=== PATIENT | female | born 1955 | race Caucasian/White ===

== ENCOUNTER 2021-03-24 07:00 | Emergency (ER) | payer OTHER ==
[~2021-03-24] VITALS: Ht 182.9 cm; Wt 117.9 kg
--- OUTSIDE RECORDS SUMMARY | 2021-03-24 07:04 | XMS ---
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 Baldomero has no Care Guidelines for this patient. Juan VISIT COUNT (12 MO.) 1 DON Barajas TOTAL 1 NOTE: Visits indicate total known visits. ED/C VISIT TRACKING (12 MO.) 03/24/2021 07:01 DON Covarrubias OR TYPE: Emergency COMPLAINT: - LEFT EYE VISION PROBLEM INPATIENT VISIT TRACKING (12 MO.) No inpatient visits to display in this time frame [id number]
[2021-03-24] MEDS ORDERED: METHOCARBAMOL750 MG (07:16)
[2021-03-24] MEDS ORDERED: SUDOGEST120 MG PO (07:16)
--- NOTE | 2021-03-24 12:47 | EKG ---
[facility] [address] [facility] [place], [place] [address] Signed Normal sinus rhythm with sinus arrhythmia Normal ECG No previous ECGs available Confirmed by DORIAN BELL MD ([id number]) on 03/24/2021 12:47:45 PM Electronically Signed By: DORIAN BELL MD 03/24/21 1247 [facility] DATE OF : 57 PHYSICIAN: DORIAN BELL MD REPORT #: [id number] REPORT IS CONFIDENTIAL AND NOT TO BE RELEASED WITHOUT AUTHORIZATION
== END 2021-03-24 11:18 | disposition home or self-care (01) ==
LOC: ED 07:00
DX: H53.9 Unspecified visual disturbance (principal); Z87.891 Personal history of nicotine dependence; Z88.2 Allergy status to sulfonamides; Z88.1 Allergy status to other antibiotic agents; Z88.5 Allergy status to narcotic agent; Z79.899 Other long term (current) drug therapy
CPT/HCPCS: 80048; 83735; 84484; 85025; 85651; 93005; 93010; 96374; 96375; 99284-25; J0780; J1100; J1200; J1885; J3475

== ENCOUNTER 2021-11-22 07:00 | Day surgery (SDC) | payer MEDICARE, OTHER ==
[~2021-11-22] VITALS: Ht 182.9 cm; Wt 120.5 kg
[~2021-11-22 07:00] MED LIST: METHOCARBAMOL750 MG; SUDOGEST120 MG PO; TERBINAFINE HC250 MG PO; ZETIA10 MG PO
[2021-11-22] MEDS ORDERED: ACETAMINOPHEN325 M1 PO (07:42)
[2021-11-22] MEDS ORDERED: ZYRTEC10 MG PO (07:45)
--- NOTE | 2021-11-22 07:50 | NUR ---
PT TO X-RAY
--- NOTE | 2021-11-22 10:36 | NUR ---
1025: PT ARRIVES BACK TO DS RM 3 VIA WC WITH NOAH FROM IMAGING. PT ABLE TO TRANSFER SELF FROM WC TO STRETCHER, BLANKETS PLACED. IV FLUSHED WITH 10 MLS NS AND FLUIDS HOOKED UP. PT SISTER AT BEDSIDE, CALL LIGHT WITHIN REACH.
--- NOTE | 2021-11-22 11:22 | NUR ---
RUG CUTTER HELPER UPDATED AND PAIN MEDICATION GIVEN PER EMAR. PULSE OX IN PLACE AND SISTER AT BEDSIDE, EDUCATION GIVEN. 11/01 PAIN.
--- NOTE | 2021-11-22 12:32 | NUR ---
PT REPORTS 5/10 PAIN. MEDICATION GIVEN PER EMAR. PT UPDATED AND SISTER AT BEDSIDE. PT REPORTS PAIN IS GETTING BETTER. O2 SAT 100%
--- NOTE | 2021-11-22 16:01 | NUR ---
11/22/21 1601 Sheets,Fiordaliza 1554 PT ARRIVED TO PACU ON 6L VIA MASK WITH ORAL AIRWAY IN PLACE AND RN DOING DOING THRUST TO MAINTAIN AIRWAY. VSS. PT NONAROUSABLE.
[2021-11-22] MEDS ORDERED: OXYCODON-ACETA1 EAC2 PO (16:08)
[2021-11-22] MEDS ORDERED: ACETAMINOPHEN500 MG PO (16:08)
[2021-11-22] MEDS ORDERED: IBUPROFEN600 MG PO (16:08)
--- NOTE | 2021-11-22 16:58 | NUR ---
PT RESTING IN BED AND PT EATING PUDDING AND SIPPING SODA PER REQUEST. VSS.
--- NOTE | 2021-11-22 17:00 | NUR ---
SISTER AT BEDSIDE AND PLAN OF CARE DISCUSSED. PAIN MEDICATION GIVEN PER EMAR.
--- NOTE | 2021-11-22 17:45 | NUR ---
PT UP TO BATHROOM WITH SISTER. PT STERADY ON HER FEET. PT RATES PAIN 4/10 AND TOLERABLE.
--- NOTE | 2021-11-22 18:00 | NUR ---
DC INSTRUCTIONS GIVEN AND RX WITH PAPERWORK GIVEN. SISTER AND PT VERBALIZE UNDERSTANDING. VSS. PT DC VIA WC.
--- NOTE | 2021-11-24 11:23 | OR ---
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 PROCEDURE: Left needle localized excisional breast biopsy (partial mastectomy). ANESTHESIA: General endotracheal, Jayson Hancock CRNA. INDICATIONS: This 66-year-old white woman is a patient of Larissa Tyson PA-C, who was referred with a left upper outer quadrant intraductal papilloma and focal adjacent atypical ductal hyperplasia on imaging studies with subsequent biopsy on September 11, 2021. The intraductal papilloma was 3 mm in size and adjacent to a focal area of atypical ductal hyperplasia with fibrocystic change. She had no evidence of invasive carcinoma. She has no breast problems from the past and no family history of breast cancer. She is admitted to undergo excision of the area, which is nonpalpable, by needle localized technique, understanding the risks of bleeding, infection, cosmetic deformity, need for additional treatment should invasive malignancy be found, and other unforeseen complications. FINDINGS: Two wires emanated from the left breast, one superiorly and one laterally. The lateral one was the one associated with good localization. Excision of the breast tissue in conjunction with the well placed needle on specimen radiograph confirmed the neoplasm in question as well as the marker placed previously. DESCRIPTION OF PROCEDURE: The patient was received from the radiology suite and taken to the operating room, given general LMA type anesthetic and preoperative antibiotic Ancef. The left breast had 2 wires emanating from it, the superior one well marked as the inaccurate one and this was Electronically Signed By: JAYSON PASTRANA MD 11/24/21 1123 PATIENT NAME: CAT BRASHER OPERATIVE REPORT DATE OF : 57 REPORT #: [id number] PHYSICIAN: JAYSON PASTRANA MD PCP: ROGREIO SAAVEDRA PA-C REPORT IS CONFIDENTIAL AND NOT TO BE RELEASED WITHOUT AUTHORIZATION [facility] [address] [place], [place] [address] Signed removed. The lower wire exiting laterally was the appropriate one. It was trimmed to length. The breast was prepared with a spray of Betadine solution and draped sterilely. A curvilinear incision was made medial to the exit site of the wire. Dissection carried through the dermis using electrocautery. The wire was delivered into the wound. Using an Allis clamp, parenchyma was grasped and wide resection undertaken with electrocautery. The breast was surprisingly hypervascular overall and did require additional effort for hemostasis. The specimen was explanted, marked with short stitch superior and a long stitch laterally, and sent for specimen radiograph. Specimen radiograph, as interpreted by Dr. Turner, included the tumor marker as well as the neoplasm itself. Irrigation was undertaken of the wound and hemostasis assured with electrocautery. Parenchymal reapproximation was undertaken with interrupted 2-0 Vicryl, skin closed with running subcuticular 3-0 Vicryl. Steri-Strips were applied as well as Acticoat dressing. She tolerated the procedure well. Blood loss was less than 20 mL. Sponge, needle, and instrument counts were correct x3. MD SHAHEEN Medeiros/MODL /[id number] cc: BRISA Larkin PA-C Cynthia Sue Holmes, MD Copies: ROGERIO SAAVEDRA PA-C, CYNTHIA SUE MD ~ Electronically Signed By: JAYSON PASTRANA MD 11/24/21 1123 PATIENT NAME: CAT BRASHER OPERATIVE REPORT DATE OF : 57 REPORT #: [id number] PHYSICIAN: JAYSON PASTRANA MD PCP: ROGERIO SAAVEDRA PA-C REPORT IS CONFIDENTIAL AND NOT TO BE RELEASED WITHOUT AUTHORIZATION
--- NOTE | 2021-12-03 08:44 | PATH ---
[facility] [address] [place], [place] [address] Signed SPECIMEN(S): A LEFT BREAST BIOPSY WITH NEEDLE LOCALIZATION SPECIMEN SOURCE: A. LEFT BREAST BIOPSY WITH NEEDLE LOCALIZATION CLINICAL HISTORY: Intraductal papilloma L breast. 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 - Size (extent) of DCIS: Present in 3 of 26 blocks. - Architectural patterns: Micropapillary and cribriform. - Nuclear grade: Grade 1 (low). - Necrosis: Not identified. - Microcalcifications: Present in non-neoplastic tissue. - Margin status: All margins negative for DCIS. - Distance of DCIS to closest margin: ? 5 mm from all margins - Closest margin: Anterior, 5 mm. - Regional lymph nodes: Not applicable (no regional lymph nodes submitted or found). - Additional pathologic findings: Flat epithelial atypia (FEA), atypical ductal hyperplasia (ADH), lobular neoplasia (atypical lobular hyperplasia/lobular carcinoma in situ), biopsy site change, fibrocystic changes. - Pathologic stage classification (pTNM, AJCC 8th edition): pTis pN not assigned. - Breast biomarker studies: - Estrogen receptor (ER): Positive, greater than 95% of tumor cells with strong intensity - Progesterone receptor (PGR): Negative, less than 1% of tumor cells with staining. COMMENT: As part of [facility]' Quality Improvement Program, this case was reviewed by another member of our pathology staff. A diagnostic alert was initiated by Dr. Roman on 12/03/21. NAL:NRT:cml:C1NR PATIENT NAME: CAT BRASHER PATHOLOGY DATE OF : 57 REPORT #: [id number] PHYSICIAN: ISABEL PATHOLOGY PCP: ROGERIO SAAVEDRA PA-C REPORT IS CONFIDENTIAL AND NOT TO BE RELEASED WITHOUT AUTHORIZATION [facility] [address] [place], [place] [address] Signed MICROSCOPIC EXAMINATION: Histologic sections of all submitted blocks are examined by light microscopy. These findings, together with the gross examination, support the pathologic diagnosis. Immunohistochemical stains (with appropriately staining controls) were performed. E-cadherin (A2) highlights the lobular neoplasia with lack of membranous reactivity. ER and CK5/6 (A3, A6) highlight ADH and DCIS, with ER overexpression and loss of CK5/6 staining. Block: A4. The cold ischemia time is unknown. The fixative is 10% NBF. The length of fixation is 24 hours, meeting ASCO/CAP guidelines. Estrogen receptor clone SP1 and progesterone receptor clone 1E2 by [employer] [place], [place]. Detection: HRP Polymer Detection on the [employer] with appropriate controls. Nuclear immunoreactivity of 1% or greater is considered positive by ASCO/CAP 2020 guidelines. Internal control cells for ER are positive. Internal control cells for MI are positive. The technical component was performed by [facility], [address] [place] [address] (CLIA# [id number]). [facility], [address] [facility] [address] [address] (CLIA# [id number]). GROSS DESCRIPTION: The specimen, labeled "MW, left breast biopsy," is received in formalin and consists of an oriented portion of yellow-wood fatty tissue (48 g, 6.7 cm medial to lateral, 5.2 cm superior to inferior, 3.5 cm anterior to posterior) with a short stitch marking superior and a long stitch marking lateral. There is a localization wire entering and exiting the superior aspect of the specimen. The specimen is inked as follows: Blue = superior Green = inferior Black = posterior Yellow = anterior Red = medial [place] = lateral The specimen is serially sectioned from medial to lateral and a pink-wood PATIENT NAME: CAT BRASHER PATHOLOGY DATE OF : 57 REPORT #: [id number] PHYSICIAN: ISABEL WRIGHT PCP: ROGERIO SAAVEDRA PA-C REPORT IS CONFIDENTIAL AND NOT TO BE RELEASED WITHOUT AUTHORIZATION [address] [address] Signed fibrous area (1.5 x 1.5 x 1.2 cm) in slices 9-11, and a linda-shaped clip within the fibrous area in slice 10. The fibrous area is located in 0.2 cm from the anterior margin, 0.4 cm in the lateral margin, 1.2 cm from the inferior margin, 0.8 cm in the superior margin, 1.7 cm the posterior margin, and 4 cm from the lateral margin. The remaining cut surface shows yellow-wood fatty tissue with no lesions or masses grossly identified. The entire fibrous area is submitted. Gross photographs are taken and uploaded into [employer]. Valve Steamer sections are submitted as follows: (A1) slice one, medial margin, perpendicular sections (A2) slice nine, fibrous area (A3-A4) slice ten, fibrous area with location of clip (A5) posterior and superior margin closest to fibrous area (A6) slice eleven, fibrous area with anterior and lateral margin (A7) slice twelve, lateral margin, perpendicular sections Cold ischemic time cannot be calculated due to insufficient information The specimen is formalin for approximately 24 hours AC (under the direct supervision of a pathologist) The remainder of the slices 7-12 are submitted as follows at the request of Dr. Roman: (A8-A 13) slice seven (A 14-a 18) slice eight (A 19-a 20) slice nine (A 21-A22) slice 10 (A 23-A24) slice 11 (A 25-26) slice 12, perpendicularly sectioned AC (under the direct supervision of a pathologist) The Gross Description was prepared using a voice recognition system. The report was reviewed for accuracy; however, sound-alike word errors, addition and/or deletions may occur. If there is any question about this report, please contact Client Services. ADDITIONAL NOTES: Immunohistochemical and/or in situ hybridization studies were performed on this case with the appropriate positive controls that react as expected. This test was developed and its performance characteristics determined by [facility]. It has not been cleared or approved by the U.S. Food and Drug Administration. The FDA has determined that such clearance or approval is not PATIENT NAME: CAT BRASHER PATHOLOGY DATE OF : 57 REPORT #: [id number] PHYSICIAN: ISABEL PATHOLOGY PCP: SAAVEDRA,ROGERIO K PA-C REPORT IS CONFIDENTIAL AND NOT TO BE RELEASED WITHOUT AUTHORIZATION [facility] [address] [place], [place] [address] Signed necessary. This test is used for clinical purposes. It should not be regarded as investigational or for research. [facility] is certified under the Clinical Laboratory Improvement Amendments of 1988 (CLIA) as qualified to perform high complexity clinical laboratory testing. This assay has not been validated for specimens that have been decalcified. Immunohistochemical and/or in situ hybridization studies were performed on this case with the appropriate positive controls that react as expected. This test was developed and its performance characteristics determined by [facility]. It has not been cleared or approved by the U.S. Food and Drug Administration. The FDA has determined that such clearance or approval is not necessary. This test is used for clinical purposes. It should not be regarded as investigational or for research. [facility] is certified under the Clinical Laboratory Improvement Amendments of 1988 (CLIA) as qualified to perform high complexity clinical laboratory testing. This assay has not been validated for specimens that have been decalcified. The technical component was performed by [facility], [address] [place] [address] (Writing Manager: Ana Rosa Lerner MD; CLIA# [id number]). [facility], [address] [place] [address] (CLIA# [id number]). PERFORMING LABORATORY: The technical component was performed by [facility], [address] [place] [address] (Writing Manager: Ana Rosa Lerner MD; CLIA# [id number]). Professional interpretation was performed by [facility], [address] [address], [place], [place] [address] (CLIA# [id number]). Diagnostician: Allison Roman MD Pathologist Electronically Signed 12/03/2021 Copies: ~ PATIENT NAME: CAT BRASHER PATHOLOGY DATE OF : 57 REPORT #: [id number] PHYSICIAN: ISABEL PATHOLOGY PCP: ROGERIO SAAVEDRA PA-C REPORT IS CONFIDENTIAL AND NOT TO BE RELEASED WITHOUT AUTHORIZATION
== END 2021-11-22 18:00 | disposition home or self-care (01) ==
LOC: DS 07:00 → OPS 07:00 → MAM 08:00 → OPS 08:00 → EDSTATUS 08:00 → OPS 18:00
PROVIDERS: ATTEND Surgery
PROC: 0HBU0ZX Excision of Left Breast, Open Approach, Diagnostic (ICD-10-PCS; principal; 2021-11-22 09:00)
DX: D05.12 Intraductal carcinoma in situ of left breast (principal); D24.2 Benign neoplasm of left breast; N60.92 Unspecified benign mammary dysplasia of left breast; J45.909 Unspecified asthma, uncomplicated; Z17.0 Estrogen receptor positive status [ER+]; Z88.1 Allergy status to other antibiotic agents; Z88.2 Allergy status to sulfonamides; Z90.711 Acquired absence of uterus with remaining cervical stump; Z86.16 Personal history of COVID-19
CPT/HCPCS: 00404; 19281; 76098; 88307; 88341; 88342; 88360; J0131; J0690; J1100; J1644; J1885; J2250; J2405; J2704; J2765; J3010; J7121

== ENCOUNTER 2021-12-27 10:53 | Day surgery (SDC) | payer MEDICARE, OTHER ==
[~2021-12-27] VITALS: Ht 182.9 cm; Wt 119.5 kg
[~2021-12-27 10:53] MED LIST changes: +ACETAMINOPHEN325 M1 PO; +ACETAMINOPHEN500 MG PO; +IBUPROFEN600 MG PO; +OXYCODON-ACETA1 EAC2 PO; +ZYRTEC10 MG PO
[2021-12-27] MEDS ORDERED: ALLEGRA-D 24 H1 EACH PO (11:27)
--- NOTE | 2021-12-27 13:32 | NUR ---
12/27/21 1332 Sheets,Fiordaliza 1316 PT ARRVIED TO PACU ON 3L VIA MASK, VSS. PT ASLEEP AND NONAROUSABLE TO TACTILE STIMULI. SMALL AMOUNT OF SNORING NOTED. RESP EVEN AND UNLABORED. 1328 PT WOKE TO TACTILE STIMULI AND O2 REMOVED, PT REORIENTED TO PACU AND REPORTS WANTING A DRINK. PT EASILY FALLS RIGHT BACK TO SLEEP.
--- NOTE | 2021-12-28 17:44 | PATH ---
[facility] [address] [place], [place] [address] Signed SPECIMEN(S): A COLON POLYP AT 35 CM SPECIMEN(S): B COLON POLYP AT 15 CM SPECIMEN SOURCE: A. COLON POLYP AT 35 CM B. COLON POLYP AT 15 CM CLINICAL HISTORY: Family history of colon cancer. Postop diagnosis: Polyps and diverticulosis. FINAL PATHOLOGIC DIAGNOSIS: A. Colon, polyp at 35 cm, polypectomy: - Colonic mucosa with focal hyperplastic mucosal changes. - Negative for dysplasia or malignancy. B. Colon, polyps at 15 cm, polypectomy: - Fragments of hyperplastic polyp(s). - Negative for dysplasia or malignancy. NAL:[facility]:C2NR MICROSCOPIC EXAMINATION: Histologic sections of all submitted blocks are examined by light microscopy. These findings, together with the gross examination, support the pathologic diagnosis. GROSS DESCRIPTION: Two specimens are received in two containers labeled with "MW". A. The specimen, labeled "MW, 1," and designated on the requisition "colon polypectomy at 35 cm," is received in formalin and consists of two fragments of pink-wood tissue (0.3 cm in greatest dimension). The specimen is submitted entirely in cassette A1. B. The specimen, labeled "MW, 2," and designated on the requisition "colon polypectomy at 15 cm," is received in formalin and consists of seven fragments of pink-wood tissue (0.2 to 0.4 cm in greatest dimension). The specimen is submitted entirely in cassette B1. AC (under the direct supervision of a pathologist) The Gross Description was prepared using a voice recognition system. The report was reviewed for accuracy; however, sound-alike word errors, addition and/or deletions may occur. If there is any question about this report, please contact Client Services. PERFORMING LABORATORY: PATIENT NAME: CAT BRASHER PATHOLOGY DATE OF : 57 REPORT #: [id number] PHYSICIAN: ISABEL PATHOLOGY PCP: ROGERIO SAAVEDRA PA-C REPORT IS CONFIDENTIAL AND NOT TO BE RELEASED WITHOUT AUTHORIZATION [facility] [address] [place] [address] Signed The technical component was performed by [employer] [address] [address] (CLIA# [id number]). Professional interpretation was performed by [facility], [address] [address] (CLIA# [id number]). Diagnostician: Allison Roman MD Pathologist Electronically Signed 12/28/2021 Copies: ~ PATIENT NAME: CAT BRASHER PATHOLOGY DATE OF : 57 REPORT #: [id number] PHYSICIAN: ISABEL PATHOLOGY PCP: ROGERIO SAAVEDRA PA-C REPORT IS CONFIDENTIAL AND NOT TO BE RELEASED WITHOUT AUTHORIZATION
--- NOTE | 2021-12-28 21:14 | OR ---
[facility] [address] [place], [place] [address] Signed DATE OF OPERATION: 12/27/2021 SURGEON: Jayson Pastrana MD PREOPERATIVE DIAGNOSIS: Surveillance, history of polyps. POSTOPERATIVE DIAGNOSES: 1. Relatively flat polyp at 35 cm (excised). 2. Multiple small probable hyperplastic polyps at 15 cm, excised. PROCEDURE: Total colonoscopy to cecum with cold morcellation polypectomies. ANESTHESIA: Intravenous sedation propofol (initially fentanyl and Versed). INDICATION: This 66-year-old white woman is a patient of CONY Eaton and known to me having undergone recent breast cancer treatment. She has had a prior colonoscopy in [place] and said to have had colonoscopy in [place], [place] which was unsuccessful. She is known to have diverticulosis. She is admitted at this time to undergo colon surveillance. She understands the risk of bleeding, infection, and perforation. FINDINGS: The prep was quite excellent. Complete colonoscopy was undertaken to the cecum. Notably, she had extensive diverticulosis in her relatively redundant colon. Typical intravenous sedation with fentanyl and Versed was unsuccessful largely and therefore sedation with propofol infusional technique by the ditch rider was required to allow for complete colonoscopy. There were numerous diverticula of the sigmoid and left colon with some distortion associated with that. The more proximal colon showed no sign of diverticula particularly. Complete colonoscopy was undertaken including intubation of the ileum without question. There was a small flat polyp at 35 cm which was excised with cold morcellation technique and several probably hyperplastic polyps of the rectosigmoid at 15 cm, which were excised as well. DESCRIPTION OF PROCEDURE: The patient was brought to the endoscopy suite and placed in the lateral decubitus Electronically Signed By: JAYSON PASTRANA MD 12/28/21 2114 PATIENT NAME: CAT BRASHER OPERATIVE REPORT DATE OF : 57 REPORT #: [id number] PHYSICIAN: JAYSON PASTRANA MD PCP: KIRA GRACE PA-C REPORT IS CONFIDENTIAL AND NOT TO BE RELEASED WITHOUT AUTHORIZATION [facility] [address] [place], [place] [address] Signed position, given intravenous sedation to the point of slurred speech and nystagmus. Digital rectal examination was normal. The Olympus video colonoscope was passed in the rectum and manipulated into the sigmoid. She had numerous diverticula and some dense tissue of the sigmoid for which passage was somewhat challenging. Various maneuvers were undertaken in the usual way as well as additional sedation. At that point, where she had 200 mcg of fentanyl and 6 mg of Versed was deemed appropriate to convert to a propofol infusional technique and Nicolas Piedra CRNA was summoned and graciously allowed for additional sedation with propofol. This did allow for passage of the scope fully to the cecum. Notably passage beyond the sigmoid and left colon was challenging in part related to diverticulosis, but in part related to poor patient tolerance of the procedure, but certainly not related to bowel prep as it was quite good. Once the cecum was fully intubated, the scope was carefully withdrawn and examination throughout undertaken. About 35 cm from the anal verge, there was a small flat polyp, possibly adenomatous. This was excised with cold morcellation technique completely. Further withdrawal multiple diverticula of the sigmoid. At the rectosigmoid, multiple small hyperplastic appearing polyps were noted. These were excised with cold morcellation technique. There are at least 4 to 6 of them excised in total. Retroflexed view of the rectum was normal. Scope was straightened, withdrawn and removed. The patient was taken to the recovery room in good condition. CONCLUDING DIAGNOSES: 1. Multiple polyps at 15 cm (excised, probably hyperplastic). 2. Small flat polyp at 35 cm, excised, possibly adenomatous). PLAN: Recommend repeat colonoscopy in 10 years if all the polyps are hyperplastic and in 5 if adenomas are noted. It is noted that propofol infusional sedation in the future would be most appropriate given her level of tolerance for colonoscopy. MD SHAHEEN Medeiros/LEROY /[id number] cc: Kira Grace PA-C Electronically Signed By: JAYSON PASTRANA MD 12/28/21 2114 PATIENT NAME: [facility] OPERATIVE REPORT DATE OF : 57 REPORT #: [id number] PHYSICIAN: JAYSON PASTRANA MD PCP: KIRA GRACE PA-C REPORT IS CONFIDENTIAL AND NOT TO BE RELEASED WITHOUT AUTHORIZATION [facility] [address] [place] [address] [place], [place] [address] Signed Copies: KIRA GRACE PA-C ~ Electronically Signed By: JAYSON PASTRANA MD 12/28/21 2114 PATIENT NAME: CAT BRASHER OPERATIVE REPORT DATE OF : 57 REPORT #: [id number] PHYSICIAN: JAYSON PASTRANA MD PCP: KIRA GRACE PA-C REPORT IS CONFIDENTIAL AND NOT TO BE RELEASED WITHOUT AUTHORIZATION
== END 2021-12-27 14:13 | disposition home or self-care (01) ==
LOC: OPS 10:53 → DS 10:58 → OPS 14:13
PROVIDERS: ATTEND Surgery
PROC: 0DBN8ZX Excision of Sigmoid Colon, Via Natural or Artificial Opening Endoscopic, Diagnostic (ICD-10-PCS; principal; 2021-12-27 12:00)
DX: Z12.11 Encounter for screening for malignant neoplasm of colon (principal); K63.5 Polyp of colon; D05.12 Intraductal carcinoma in situ of left breast; Z80.0 Family history of malignant neoplasm of digestive organs; J45.909 Unspecified asthma, uncomplicated; Z88.1 Allergy status to other antibiotic agents; Z88.2 Allergy status to sulfonamides; K57.30 Diverticulosis of large intestine without perforation or abscess without bleeding
CPT/HCPCS: 00811; J2250; J2704; J3010; J7121

== ENCOUNTER 2023-04-30 10:12 | Emergency (ER) | payer MEDICARE, OTHER ==
[~2023-04-30] VITALS: Ht 182.9 cm; Wt 105.6 kg
--- OUTSIDE RECORDS SUMMARY | ~2023-04-30 | XMS | Continuity of Care Document ---
Demographics + + + | Address | [address] | | | [place] [address] | + + + | Preferred Language | Unknown | + + + | Marital Status | | + + + | Scientologist Affiliation | Unknown | + + + | Race | White | + + + | Ethnic Group | Not or | + + + Author + + + | Author | [facility] | + + + | Organization | [facility] | + + + | Address | [address] | | | [place] [address] | + + + | Phone | | + + + Care Team Providers + + + + | Care University Controller Name | Role | Phone | + + + + Unavailable | Unavailable | + + + + Unavailable | Unavailable | + + + + Unavailable | Unavailable | + + + + Unavailable | Unavailable | + + + + Allergies and Intolerances + + + + + + | date | description | facility | reaction | severity | + + + + + + | (no date) | MOXIFLOXACIN | [facility] | (no reaction) | (no severity) | [facility] | | | | | [place] | | | | | | [facility] | | | | | | | | | + + + + + + | (no date) | Mild | [facility] | (no reaction) | (no severity) | | | | [facility] | | | + + + + + + | (no date) | Itching | [facility] | (no reaction) | (no severity) | | | [facility] | | | | | [place] | | | | | | [facility] | | | | | | | | | + + + + + + | (no date) | meperidine | [facility] | (no reaction) | (no severity) | | | | [facility] | | | + + + + + + | (no date) | LEVOFLOXACIN | [facility] | (no reaction) | (no severity) | | | [facility] | | | | | | [place] | | | | | | [facility] | | | | | | | | | + + + + + + | (no date) | Hallucination | [facility] | (no reaction) | (no severity) | | | [facility] | | | | | [place] | | | | | | [facility] | | | | | | | | | + + + + + + | (no date) | Hallucinations | [facility] | (no reaction) | (no severity) | | | | [facility] | | | + + + + + + | (no date) | MORPHINE | [facility] | (no reaction) | (no severity) | | | SULFATE | [facility] | | [place] | | | | | | [facility] | | | | | | | | | + + + + + + | (no date) | morphine | [facility] | (no reaction) | (no severity) | | | | [facility] | | | + + + + + + | (no date) | Other (See | [facility] | (no reaction) | (no severity) | | | Comments) | [facility] | [facility] | | [place] | | | | | | [facility] | | | | | | | | | + + + + + + | (no date) | MORPHINE | [facility] | (no reaction) | (no severity) | | | SULFATE | [facility] | [place] | | | | | | [facility] | | | | | | | | | + + + + + + | (no date) | LEVOFLOXACIN | [facility] | (no reaction) | (no severity) | | | [facility] | | | | | | [place] | | | | | | [facility] | | | | | | | | | + + + + + + | (no date) | levofloxacin | [facility] | (no reaction) | (no severity) | | | | [facility] | | | + + + + + + | (no date) | MONTELUKAST | [facility] | (no reaction) | (no severity) | | | [facility] | | | | | | [place] | | | | | | [facility] | | | | | | | | | + + + + + + | (no date) | MOXIFLOXACIN | [facility] | (no reaction) | (no severity) | | | [facility] | | | | | | [place] | | | | | | [facility] | | | | | | | | | + + + + + + | (no date) | Sulfa | [facility] | (no reaction) | (no severity) | | | (Sulfonamide | | | | | | Antibiotics) | | | | + + + + + + | (no date) | morphine | [facility] | (no reaction) | (no severity) | + + + + + + | (no date) | meperidine | [facility] | (no reaction) | (no severity) | + + + + + + | (no date) | levofloxacin | [facility] | (no reaction) | (no severity) | + + + + + + | (no date) | MONTELUKAST | [facility] | (no reaction) | (no severity) | | | [facility] | | | | | [place] | | | | | | [facility] | | | | | | | | | + + + + + + | (no date) | SULFA | [facility] | (no reaction) | (no severity) | | | ANTIBIOTICS | [facility] | | | | | [place] | | | | | | [facility] | | | | | | | | | + + + + + + Encounters No information. Functional Status No information. Immunizations No information. Medications + + + + | date | description | facility | + + + + | 2020-08-28 00:00 | cetirizine hcl 10 mg oral | [facility] | | | tablet | [facility] | | | | | + + + + | 2020-09-01 00:00 | cetirizine hcl 10 mg oral | [facility] | | | tablet | [place] [facility] | | | | | + + + + | 2020-09-26 00:00 | cetirizine hcl 10 mg oral | [facility] | | | tablet | [facility] | | | | | + + + + | 2020-10-24 00:00 | cetirizine hcl 10 mg oral | [facility] | | | tablet | [facility] | | | | | + + + + | 2020-05-08 00:00 | pseudoephedrine hcl 120 mg | [facility] | | | 12 hr extended release | [facility] | | | oral tablet | | + + + + | 2020-08-28 00:00 | pseudoephedrine hcl 120 mg | [facility] | | | 12 hr extended release | [facility] | | | oral tablet | | + + + + | 2021-11-22 00:00 | OXYCODONE | [facility] | | | HCL/ACETAMINOPHEN | | + + + + | 2019-09-16 00:00 | fluticasone propionate 50 | [facility] | | | mcg/actuat metered dose | [facility] | | | nasal spray | | + + + + | 2020-03-01 00:00 | clonazepam 0.5 mg oral | [facility] | | | tablet | [facility] | | | | | + + + + | 2021-11-22 00:00 | IBUPROFEN | [facility] | + + + + | 2022-03-02 00:00 | METHOCARBAMOL | [facility] | + + + + | 2020-07-06 00:00 | methocarbamol 750 mg oral | [facility] | | | tablet | [facility] | | | | | + + + + | 2020-09-01 00:00 | methocarbamol 750 mg oral | [facility] | | | tablet | [facility] | | | | | + + + + | 2020-07-21 00:00 | lamotrigine 200 mg oral | [facility] | | | tablet | [facility] | | | | | + + + + | 2021-11-22 00:00 | ACETAMINOPHEN | [facility] | + + + + | 2020-08-28 00:00 | acquired hemolytic anemias | [facility] | | | | [facility] | | | | | + + + + | 2020-09-01 00:00 | acquired hemolytic anemias | [facility] | | | | [facility] | | | | | + + + + | 2020-09-26 00:00 | acquired hemolytic anemias | [facility] | | | | [facility] | | | | | + + + + | 2020-10-24 00:00 | acquired hemolytic anemias | [facility] | | | | [facility] | | | | | + + + + | 2020-08-28 00:00 | acquired hemolytic anemias | [facility] | | | | [facility] | | | | | + + + + | 2020-09-01 00:00 | acquired hemolytic anemias | [facility] | | | | [facility] | | | | | + + + + | 2020-09-26 00:00 | acquired hemolytic anemias | [facility] | | | | [facility] | | | | | + + + + | 2020-10-24 00:00 | acquired hemolytic anemias | [facility] | | | | [facility] | | | | | + + + + | 2022-03-02 00:00 | ACETAMINOPHEN | [facility] | + + + + | 2020-08-28 00:00 | acetaminophen 325 mg oral | [facility] | | | tablet | [facility] | | | | | + + + + | 2020-09-01 00:00 | acetaminophen 325 mg oral | [facility] | | | tablet | [facility] | | | | | + + + + | 2020-09-26 00:00 | acetaminophen 325 mg oral | [facility] | | | tablet | [facility] | | | | | + + + + | 2020-10-24 00:00 | acetaminophen 325 mg oral | [facility] | | | tablet | [facility] | | | | | + + + + | 2022-03-02 00:00 | EZETIMIBE | [facility] | + + + + | 2019-06-17 00:00 | fluticasone propionate 110 | [facility] | | | mcg/inhal metered dose | [facility] | | | inhaler, 120 actuations | | + + + + | 2019-06-17 00:00 | flovent hfa 110 mcg/actuat | [facility] | | | metered dose inhaler, 120 | [facility] | | | actuat | | + + + + | 2019-09-16 00:00 | 24 hr bupropion | [facility] | | | hydrochloride 300 mg | [facility] | | | extended release oral | | | | tablet | | + + + + | 2020-10-24 00:00 | 24 hr bupropion | [facility] | | | hydrochloride 300 mg | [facility] | | | extended release oral | | | | tablet | | + + + + | 2022-03-02 00:00 | | [facility] | | | FEXOFENADINE/PSEUDOEPHEDRIN | | | | E | | + + + + | 2020-08-28 00:00 | fexofenadine hcl 180 mg 24 | [facility] | | | hr oral tablet | [facility] | | | | | + + + + | 2020-09-01 00:00 | fexofenadine hcl 180 mg 24 | [facility] | | | hr oral tablet | [facility] | | | | | + + + + | 2020-09-26 00:00 | fexofenadine hcl 180 mg 24 | [facility] | | | hr oral tablet | [facility] | | | | | + + + + | 2020-10-24 00:00 | fexofenadine hcl 180 mg 24 | [facility] | | | hr oral tablet | [facility] | | | | | + + + + Problems + + + + | date | description | facility | + + + + | 2009-03-30 00:00 | adaptive colitis | [facility] | | | | [facility] | | | | | + + + + | 2009-03-30 00:00 | sleeplessness | [facility] | | | | [facility] | | | | | + + + + | 2009-03-30 00:00 | anxiety depression | [facility] | | | | [facility] | | | | | + + + + | 2009-03-30 00:00 | hld - hyperlipidemia | [facility] | | | | [facility] | | | | | + + + + | 2009-03-30 00:00 | Hyperlipidemia | [facility] | | | | [facility] | | | | | + + + + | 2009-03-30 00:00 | 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 | [facility] | | | | | + + + + | 2009-03-30 00:00 | Insomnia | [facility] | | | | [facility] | | | | | + + + + | 2009-03-30 00:00 | IBS (irritable bowel | [facility] | | | syndrome) | [facility] | | | | | + + + + | 2009-08-04 00:00 | incontinence (finding) | [facility] | | | | [facility] | | | | | + + + + | 2009-08-04 00:00 | Mixed incontinence urge | [facility] | | | and stress | [facility] | | | | | + + + + | 2010-05-30 00:00 | lazs palsy | [facility] | | | | [facility] | | | | | + + + + | 2010-05-30 00:00 | [place] palsy | [facility] | | | | [facility] | | | | | + + + + | 2010-07-25 00:00 | tobacco user (finding) | [facility] | | | | [facility] | | | | | + + + + | 2010-07-25 00:00 | Tobacco abuse | [facility] | | | | [facility] | | | | | + + + + | 2011-09-12 00:00 | vertigo (spinning | [facility] | | | sensation) | [facility] | | | | | + + + + | 2011-09-12 00:00 | Vertigo | [facility] | | | | [facility] | | | | | + + + + | 2015-05-05 00:00 | gastro-esophageal reflux | [facility] | | | disease | [facility] | | | | | + + + + | 2015-05-05 00:00 | GERD (gastroesophageal | [facility] | | | reflux disease) | [facility] | | | | | + + + + | 2016-03-01 00:00 | triggering of digit | [facility] | | | (disorder) | [facility] | | | | | + + + + | 2016-03-01 00:00 | Trigger ring finger of | [facility] | | | right hand | [facility] | | | | | + + + + | 2016-06-21 00:00 | chronic infection of sinus | [facility] | | | | [facility] | | | | | + + + + | 2016-06-21 00:00 | Chronic infection of sinus | [facility] | | | | [facility] | | | | | + + + + | 2018-02-03 00:00 | chronic low back pain | [facility] | | | (finding) | [facility] | | | | | + + + + | 2018-02-03 00:00 | Chronic bilateral low back | [facility] | | | pain without sciatica | [facility] | | | | | + + + + | 2018-02-18 00:00 | body mass index 30+ - | [facility] | | | obesity (finding) | [facility] | | | | | + + + + | 2018-02-18 00:00 | Obesity (BMI 35.0-39.9 | [facility] | | | without comorbidity) | [facility] | | | | | + + + + | 2018-04-24 00:00 | polyp (disorder) | [facility] | | | | [facility] | | | | | + + + + | 2018-04-24 00:00 | Adenomatous polyps | [facility] | | | | [facility] | | | | | + + + + | 2018-04-29 00:00 | history of adenomatous | [facility] | | | polyp of colon (situation) | [facility] | | | | | + + + + | 2018-04-29 00:00 | Hx of adenomatous colonic | [facility] | | | polyps | [facility] | | | | | + + + + | 2022-08-27 07:45 | AFTERCARE FOLLOWING JOINT | [facility] | | | REPLACEMENT SURGERY | | + + + + | 2022-08-27 07:45 | FINGER-JOINT REPLACEMENT | [facility] | | | OF LEFT HAND | | + + + + | 2023-03-18 13:29 | PRIMARY OSTEOARTHRITIS, | [facility] | | | LEFT ANKLE AND FOOT | | + + + + | 2023-03-18 13:29 | PAIN IN LEFT HIP | [facility] | + + + + | 2023-03-18 13:29 | PAIN IN LEFT KNEE | [facility] | + + + + | 2023-03-18 13:29 | PAIN IN LEFT ANKLE AND | [facility] | | | JOINTS OF LEFT FO | | + + + + | 2023-03-18 13:29 | OTHER SPECIFIED DISORDERS | [facility] | | | OF BONE, OTHER SITE | | + + + + | 2023-03-18 13:29 | UNSPECIFIED INJURY OF LEFT | [facility] | | | HIP, INITIAL | | + + + + | 2023-04-22 14:00 | ABNORMAL FINDINGS ON DX | [facility] | | | IMAGING OF OTH B | | + + + + | 2023-04-22 14:01 | BENIGN NEOPLASM OF LONG | [facility] | | | BONES OF LEFT LOWER LIMB | | + + + + | 2023-04-22 14:01 | ABNORMAL FINDINGS ON | [facility] | | | DIAGNOSTIC IMAGING OF PRT | | | | MS | | + + + + | 2023-04-22 14:01 | ABNORMAL FINDINGS ON DX | [facility] | | | IMAGING OF OTH B | | + + + + | 2023-04-22 14:01 | ABNORMAL FINDINGS ON DX | [facility] | | | IMAGING OF OTH BODY | | | | STRUCTURES | | + + + + | 2023-04-22 14:01 | UNSP FRACTURE OF UPPER END | [facility] | | | OF LEFT TIBIA, INIT FOR | | + + + + | 2023-04-22 14:01 | OTH TEAR OF LAT MENSC, | [facility] | | | CURRENT INJURY, LEFT KNEE, | | + + + + Procedures + + + + | date | description | facility | + + + + | 2021-12-27 00:00 | EXCISION OF SIGMOID COLON, | [facility] | | | ENDO, DIAGN | | + + + + | 2021-11-22 00:00 | EXCISION OF LEFT BREAST, | [facility] | | | OPEN APPROACH, DIAGNOSTIC | | + + + + | 2021-11-22 00:00 | EXCISION BREAST LESION | [facility] | + + + + | 2021-12-27 00:00 | COLONOSCOPY AND BIOPSY | [facility] | + + + + Results/Labs +--------+--------+ +---------+--------+---------+ | test | date | facility | value | unit | notes | +--------+--------+ +---------+--------+---------+ + + | Result panel 1 | + + + + + +-------+ + + | | 2021-11-19 | [facility] | 8.8 | (missing) | (missing) | | (unavailable | 15:04 | [facility] | | | | + + + +-------+ + + + + | Result panel 2 | + + + + + +--------+ + + | | 2021-11-19 | [facility] | 71.7 | (missing) | (missing) | | (unavailable | 15:04 | [facility] | | | | + + + +--------+ + + + + | Result panel 3 | + + + + + +--------+ + + | | 2021-11-19 | [facility] | 19.4 | (missing) | (missing) | | (unavailable | 15:04 | [facility] | | | | + + + +--------+ + + + + | Result panel 4 | + + + + + +-------+ + + | | 2021-11-19 | [facility] | 7.1 | (missing) | (missing) | | (unavailable | 15:04 | [facility] | | | | + + + +-------+ + + + + | Result panel 5 | + + + + + +-------+ + + | | 2021-11-19 | [facility] | 1.0 | (missing) | (missing) | | (unavailable | 15:04 | [facility] | | | | + + + +-------+ + + + + | Result panel 6 | + + + + + +-------+ + + | | 2021-11-19 | [facility] | 0.8 | (missing) | (missing) | | (unavailable | 15:04 | [facility] | | | | + + + +-------+ + + + + | Result panel 7 | + + + + + +-------+---------+ + | | 2021-11-19 | [facility] | 108 | mg/dL | (missing) | | (unavailable | 15:04 | [facility] | | | | + + + +-------+---------+ + + + | Result panel 8 | + + + + + +------+---------+ + | | 2021-11-19 | [facility] | 15 | mg/dL | (missing) | | (unavailable | 15:04 | [facility] | | | | + + + +------+---------+ + + + | Result panel 9 | + + + + + +--------+---------+ + | | 2021-11-19 | [facility] | 1.03 | mg/dL | (missing) | | (unavailable | 15:04 | [facility] | | | | + + + +--------+---------+ + + + | Result panel 10 | + + + + + +---------+ + + | | 2021-11-19 | [facility] | 53.78 | (missing) | (missing) | | (unavailable | 15:04 | [facility] | | | | + + + +---------+ + + + + | Result panel 11 | + + + + + +---------+ + + | | 2021-11-19 | [facility] | 14.56 | (missing) | (missing) | | (unavailable | 15:04 | [facility] | | | | + + + +---------+ + + + + | Result panel 12 | + + + + + +--------+ + + | | 2021-11-19 | [facility] | 4.51 | (missing) | (missing) | | (unavailable | 15:04 | [facility] | | | | + + + +--------+ + + + + | Result panel 13 | + + + + + +-------+ + + | | 2021-11-19 | [facility] | 137 | (missing) | (missing) | | (unavailable | 15:04 | [facility] | | | | + + + +-------+ + + + + | Result panel 14 | + + + + + +-------+ + + | | 2021-11-19 | [facility] | 4.1 | (missing) | (missing) | | (unavailable | 15:04 | [facility] | | | | + + + +-------+ + + + + | Result panel 15 | + + + + + +-------+ + + | | 2021-11-19 | [facility] | 100 | (missing) | (missing) | | (unavailable | 15:04 | [facility] | | | | + + + +-------+ + + + + | Result panel 16 | + + + + + +------+ + + | | 2021-11-19 | [facility] | 26 | (missing) | (missing) | | (unavailable | 15:04 | [facility] | | | | + + + +------+ + + + + | Result panel 17 | + + + + + +--------+ + + | | 2021-11-19 | [facility] | 15.1 | (missing) | (missing) | | (unavailable | 15:04 | [facility] | | | | + + + +--------+ + + + + | Result panel 18 | + + + + + +-------+---------+ + | | 2021-11-19 | [facility] | 9.5 | mg/dL | (missing) | | (unavailable | 15:04 | [facility] | | | | + + + +-------+---------+ + + + | Result panel 19 | + + + + + +-------+ + + | | 2021-11-19 | [facility] | 7.7 | (missing) | (missing) | | (unavailable | 15:04 | [facility] | | | | + + + +-------+ + + + + | Result panel 20 | + + + + + +-------+ + + | | 2021-11-19 | [facility] | 2.8 | (missing) | (missing) | | (unavailable | 15:04 | [facility] | | | | + + + +-------+ + + + + | Result panel 21 | + + + + + +-------+ + + | | 2021-11-19 | [facility] | 4.9 | (missing) | (missing) | | (unavailable | 15:04 | [facility] | | | | + + + +-------+ + + + + | Result panel 22 | + + + + + +--------+ + + | | 2021-11-19 | [facility] | 0.57 | (missing) | (missing) | | (unavailable | 15:04 | [facility] | | | | + + + +--------+ + + + + | Result panel 23 | + + + + + +--------+ + + | | 2021-11-19 | [facility] | 14.2 | (missing) | (missing) | | (unavailable | 15:04 | [facility] | | | | + + + +--------+ + + + + | Result panel 24 | + + + + + +-------+ + + | | 2021-11-19 | [facility] | 0.4 | (missing) | (missing) | | (unavailable | 15:04 | [facility] | | | | + + + +-------+ + + + + | Result panel 25 | + + + + + +------+ + + | | 2021-11-19 | [facility] | 24 | (missing) | (missing) | | (unavailable | 15:04 | [facility] | | | | + + + +------+ + + + + | Result panel 26 | + + + + + +------+ + + | | 2021-11-19 | [facility] | 46 | (missing) | (missing) | | (unavailable | 15:04 | [facility] | | | | + + + +------+ + + + + | Result panel 27 | + + + + + +------+ + + | | 2021-11-19 | [facility] | 92 | (missing) | (missing) | | (unavailable | 15:04 | [facility] | | | | + + + +------+ + + + + | Result panel 28 | + + + + + +--------+ + + | | 2021-11-19 | [facility] | 42.2 | (missing) | (missing) | | (unavailable | 15:04 | [facility] | | | | + + + +--------+ + + + + | Result panel 29 | + + + + + +--------+ + + | | 2021-11-19 | [facility] | 93.5 | (missing) | (missing) | | (unavailable | 15:04 | [facility] | | | | + + + +--------+ + + + + | Result panel 30 | + + + + + +--------+ + + | | 2021-11-19 | [facility] | 31.3 | (missing) | (missing) | | (unavailable | 15:04 | [facility] | | | | + + + +--------+ + + + + | Result panel 31 | + + + + + +--------+ + + | | 2021-11-19 | [facility] | 33.5 | (missing) | (missing) | | (unavailable | 15:04 | [facility] | | | | + + + +--------+ + + + + | Result panel 32 | + + + + + +--------+ + + | | 2021-11-19 | [facility] | 12.7 | (missing) | (missing) | | (unavailable | 15:04 | [facility] | | | | + + + +--------+ + + + + | Result panel 33 | + + + + + +-------+ + + | | 2021-11-19 | [facility] | 275 | (missing) | (missing) | | (unavailable | 15:04 | [facility] | | | | + + + +-------+ + + Social History + + + + | date | description | facility | + + + + | 2020-04-01 00:00 | Former smoker | [facility] | | | | [facility] | | | | | + + + + | 2020-08-28 00:00 | Current smoker | [facility] | | | | [facility] | | | | | + + + + | 2020-09-01 00:00 | Current smoker | [facility] | | | | [facility] | | | | | + + + + | 2020-09-26 00:00 | Current smoker | [facility] | | | | [facility] | | | | | + + + + | 2020-10-24 00:00 | Current smoker | [facility] | | | | [facility] | | | | | + + + + Vital Signs + + + +---------+ | date | measurement | value | units | + + + +---------+ | 2021-11-19 00:00 | BMI | 36.0 | kg/m2 | + + + +---------+ | 2021-11-19 00:00 | height_metric | 182.88 | cm | + + + +---------+ | 2021-11-19 00:00 | height_standard | 72 | in | + + + +---------+ | 2021-11-19 00:00 | weight_metric | 120.45 | kg | + + + +---------+ | 2021-11-19 00:00 | weight_standard | 265.55 | lb | + + + +---------+ | 2021-11-22 00:00 | BP_diastolic | 71 | mmHg | + + + +---------+ | 2021-11-22 00:00 | BP_systolic | 111 | mmHg | + + + +---------+ | 2021-11-22 00:00 | heart_rate | 80 | /min | + + + +---------+ | 2021-11-22 00:00 | o2_saturation | 99 | % | + + + +---------+ | 2021-11-22 00:00 | respiration_rate | 16 | /min | + + + +---------+ | 2021-11-22 00:00 | temperature_metric | 36.56 | C | | | | | | + + + +---------+ | 2021-11-22 00:00 | | 97.8 | F | | | temperature_standar | | | | | d | | | + + + +---------+ | 2021-12-26 00:00 | BMI | 35.7 | kg/m2 | + + + +---------+ | 2021-12-26 00:00 | height_metric | 182.88 | cm | + + + +---------+ | 2021-12-26 00:00 | height_standard | 72 | in | + + + +---------+ | 2021-12-26 00:00 | weight_metric | 119.5 | kg | + + + +---------+ | 2021-12-26 00:00 | weight_standard | 263.45 | lb | + + + +---------+ | 2021-12-27 00:00 | BP_diastolic | 71 | mmHg | + + + +---------+ | 2021-12-27 00:00 | BP_systolic | 107 | mmHg | + + + +---------+ | 2021-12-27 00:00 | heart_rate | 63 | /min | + + + +---------+ | 2021-12-27 00:00 | o2_saturation | 100 | % | + + + +---------+ | 2021-12-27 00:00 | respiration_rate | 14 | /min | + + + +---------+ | 2021-12-27 00:00 | temperature_metric | 36.11 | C | | | | | | + + + +---------+ | 2021-12-27 00:00 | | 97 | F | | | temperature_standar | | | | | d | | | + + + +---------+"
[~2023-04-30 10:12] MED LIST changes: +ALLEGRA-D 24 H1 EACH PO
[2023-04-30 11:02] LABS: BILIRUBIN, URINE NEGATIVE (negative); BLOOD/HGB, URINE LARGE (Negative); KETONE, URINE NEGATIVE (Negative); LEUK ESTERASE, URINE SMALL (negative); NITRITE, URINE NEGATIVE (negative)
[2023-04-30 11:05] LABS: BASOPHILS 0.7 % (0-2); EOSINOPHILS 1.7 % (0-6); HEMATOCRIT 42.2 % (35.0-50.0); HEMOGLOBIN 14.6 g/dL (12.0-18.0); LYMPHOCYTES 22.5 % (24-44); MCH 32.7 (27-36); MCHC 34.7 g/dl (30-36); MCV 94.2 fl (81-99); MONOCYTES 8.7 % (0-12); NEUTROPHILS 66.4 % (39-80); PLATELET COUNT 223 K/uL (140-440); RBC 4.48 M/ul (4.3-5.7); RDW 13.3 (10.5-15.0)
[2023-04-30 11:09] LABS: BACTERIA, URINE RARE /hpf (negative); CASTS, URINE NONE SEEN \\lpf; COLLECTION TYPE, URINE CLEAN CATCH; CRYSTALS, URINE NONE SEEN (0-1+); EPITHELIAL CELLS, URINE 0 /lpf (0-1+); REFLEX CULTURE, URINE No (No)
[2023-04-30 11:18] LABS: ALBUMIN 4.1 g/dL (3.4-5.0); ALBUMIN/GLOBULIN RATIO 1.21 (1.1-2.4); ANION GAP 15.1 (7-21); BILIRUBIN, TOTAL 0.7 ng/dL (0.2-1.0); BUN/CREATININE RATIO 20.45 (6.0-28.6); CALCIUM 9.3 mg/dL (8.5-10.1); CREATININE, SERUM 0.88 mg/dL (0.55-1.02); POTASSIUM 4.1 mmol/L (3.5-5.1); PROTEIN, TOTAL 7.5 g/dL (6.4-8.2)
--- OUTSIDE RECORDS SUMMARY | 2023-04-30 12:49 | XMS ---
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 Baldomero has no Care Guidelines for this patient. Juan VISIT COUNT (12 MO.) 1 DON Barajas TOTAL 1 NOTE: Visits indicate total known visits. ED/C VISIT TRACKING (12 MO.) 04/30/2023 10:13 DON Covarrubias OR TYPE: Emergency COMPLAINT: - L FLANK PAIN, NAUSEA, LIGHT HEADED INPATIENT VISIT TRACKING (12 MO.) No inpatient visits to display in this time frame [id number]
[2023-04-30] MEDS ORDERED: OXYCODONE HCL5 MG PO (12:54)
[2023-04-30] MEDS ORDERED: ONDANSETRON ODT4 MG PO (12:54)
[2023-04-30] MEDS ORDERED: FLOMAX0.4 MG PO (12:54)
[2023-04-30 13:10] VITALS: BP 132/74
== END 2023-04-30 13:11 | disposition home or self-care (01) ==
LOC: ED 10:12
PROVIDERS: Emergency Medicine
DX: N20.2 Calculus of kidney with calculus of ureter (principal); Z87.891 Personal history of nicotine dependence; Z88.2 Allergy status to sulfonamides; Z88.5 Allergy status to narcotic agent; Z88.1 Allergy status to other antibiotic agents; Z79.899 Other long term (current) drug therapy
CPT/HCPCS: 36415; 74176; 80053; 81001; 85025; 96374; 96375; 99284-25; J1170; J2405